=== PATIENT | male | born 1975 | race Caucasian/White ===

== ENCOUNTER 2019-12-11 08:38 | Inpatient (IN) | payer OTHER ==
[~2019-12-11] VITALS: Ht 182.9 cm; Wt 90.5 kg
[2019-12-11] MEDS ORDERED: SACU1TAB PO (08:56)
[2019-12-11 09:11] LABS: BASOPHILS % (AUTO) 0.5 % (0.0-2.0); EOSINOPHILS % (AUTO) 0.7 % (1.0-6.0); HEMOGLOBIN 15.1 g/dL (13.5-17.5); LYMPHOCYTES # (AUTO) 0.8 K/uL (1.0-4.8); LYMPHOCYTES % (AUTO) 11.1 % (22.0-44.0); MEAN CORPUSCULAR HEMOGLOBIN 31.3 pg (26.0-34.0); MEAN CORPUSCULAR HGB CONC 32.9 G/dL (31.0-37.0); MEAN CORPUSCULAR VOLUME 95 fL (80-100); MONOCYTES # (AUTO) 0.5 K/uL (0.1-1.0); MONOCYTES % (AUTO) 7.3 % (2.0-9.0); NEUTROPHILS # (AUTO) 5.7 K/uL (1.8-7.7); NEUTROPHILS % (AUTO) 80.4 % (40.0-70.0); PLATELET COUNT (AUTO) 271 K/uL (150-450); RED BLOOD CELL COUNT(AUTO) 4.83 MIL/uL (4.50-5.90)
[2019-12-11 09:20] LABS: ANION GAP 11 mmol/L (8-16); CALCIUM, TOTAL 9.8 mg/dL (8.8-10.5); CARBON DIOXIDE 25 mmol/L (22-29); CHLORIDE 102 mmol/L (98-107); CREATININE 0.95 mg/dL (0.60-1.30); GLOMERULAR FILTR. RATE CALC > 60 mL/min (>60); GLUCOSE,RANDOM 105 mg/dL (70-110); POTASSIUM 3.8 mmol/L (3.5-5.1); SODIUM SERUM 138 mmol/L (136-145); UREA NITROGEN, BLOOD 9 mg/dL (7-18)
[2019-12-11 09:52] LABS: ALANINE AMINOTRANSFERASE 36 U/L (12-78); ALKALINE PHOSPHATASE 91 U/L (46-116); ASPARTATE AMINOTRANSFERASE 29 U/L (15-37); BILIRUBIN,TOTAL 0.5 mg/dL (0.1-1.0); CREATINE KINASE, TOTAL ONLY 162 U/L (39-308); TOTAL PROTEIN, SERUM 7.9 g/dL (6.4-8.2)
[2019-12-11] MEDS ORDERED: LORazepam 2 MG/ML VIAL IVP ONE (10:15)
[2019-12-11 11:25] LABS: APPEARANCE,URINE CLEAR (CLEAR); BILIRUBIN,URINE NEGATIVE (NEGATIVE); GLUCOSE, URINE (UA) NEGATIVE (NEGATIVE); KETONES,URINE TRACE mg/dL (NEGATIVE); LEUKOCYTE ESTERASE ,URINE NEGATIVE (NEGATIVE); NITRATE,URINE NEGATIVE (NEGATIVE); OCCULT BLOOD,URINE NEGATIVE (NEGATIVE); PH,URINE 7.5 (5.0-8.0); PROTEIN,URINE NEGATIVE (NEGATIVE)
[2019-12-11 11:27] LABS: INFLUENZA TYPE A NEGATIVE FOR TYPE A (NEGATIVE); INFLUENZA TYPE B NEGATIVE FOR TYPE B (NEGATIVE)
[2019-12-11 11:27] LABS: BACTERIA,URINE None Seen /HPF (None Seen); RBC,URINE None Seen /HPF (0-2); WBC,URINE None Seen /HPF (0-5)
[2019-12-11] MEDS ORDERED: ACETAMINOPHEN 325 MG TABLET PO PRN ×2 (11:30→16:30)
[2019-12-11] MEDS ORDERED: ONDANSETRON HCL 4 MG/2 ML VIAL IVP PRN ×2 (11:30→16:30)
[2019-12-11] MEDS ORDERED: 0.9% SODIUM CHLORIDE 10 ML SYRINGE IVP PRN (11:30)
[2019-12-11 11:40] LABS: AMPHET/METH SCREEN,URINE POSITIVE (NEGATIVE); BARBITURATE SCREEN, URINE NEGATIVE (NEGATIVE); BENZODIAZEPINES SCREEN,URINE NEGATIVE (NEGATIVE); CANNABINOID SCREEN,URINE NEGATIVE (NEGATIVE); COCAINE SCREEN,URINE NEGATIVE (NEGATIVE); METHADONE SCREEN, URINE NEGATIVE (NEGATIVE); OPIATE SCREEN,URINE POSITIVE (NEGATIVE); PHENCYCLIDINE SCREEN,URINE NEGATIVE (NEGATIVE)
[2019-12-11] MEDS ORDERED: ASPIRIN 325 MG TABLET PO ONE (11:45)
[2019-12-11 15:16] VITALS: BP 125/76
[2019-12-11] MEDS ORDERED: MAGNESIUM HYDROXIDE SUSPENSION 30 ML UDCUP PO PRN (16:30)
[2019-12-11] MEDS ORDERED: BISACODYL 10 MG RECTAL RECTAL SUPPOSITORY PR PRN (16:30)
[2019-12-11 19:53] VITALS: BP 143/103
[2019-12-11] MEDS: DOCUSATE SODIUM 100 MG CAPSULE PO SCH (20:25)
[2019-12-11] MEDS: SACUBITRIL/VALSARTAN 24-26 MG TABLET PO SCH (20:25)
[2019-12-11] MEDS: HEPARIN SODIUM,PORCINE 5,000 UNITS/ML VIAL SQ SCH (23:27)
[2019-12-12 05:06] VITALS: BP 143/100
[2019-12-12 08:10] VITALS: BP 148/85
[2019-12-12] MEDS: HEPARIN SODIUM,PORCINE 5,000 UNITS/ML VIAL SQ SCH ×3 (08:27→23:33)
[2019-12-12] MEDS: PANTOPRAZOLE SODIUM 40 MG DR TABLET PO SCH (08:28)
[2019-12-12] MEDS: DOCUSATE SODIUM 100 MG CAPSULE PO SCH ×2 (08:28→21:23)
[2019-12-12] MEDS: SACUBITRIL/VALSARTAN 24-26 MG TABLET PO SCH ×2 (08:28→21:23)
[2019-12-12 12:00] VITALS: BP 132/84
[2019-12-12] MEDS: HYDROCODONE/ACETAMINOPHEN 5-325 MG TABLET PO PRN (16:05)
[2019-12-12 16:14] VITALS: BP 142/84
[2019-12-12] MEDS: FUROSEMIDE 40 MG/4 ML VIAL IVP SCH (21:23)
[2019-12-12 21:27] VITALS: BP 122/87
[2019-12-12 21:28] VITALS: BP 122/76
[2019-12-13 00:09] VITALS: BP 114/75
[2019-12-13 04:50] VITALS: BP 120/78
[2019-12-13 07:48] VITALS: BP 116/82
[2019-12-13] MEDS: HEPARIN SODIUM,PORCINE 5,000 UNITS/ML VIAL SQ SCH ×2 (08:12→15:54)
[2019-12-13] MEDS: PANTOPRAZOLE SODIUM 40 MG DR TABLET PO SCH (08:13)
[2019-12-13] MEDS: DOCUSATE SODIUM 100 MG CAPSULE PO SCH ×2 (08:13→20:26)
[2019-12-13] MEDS: SACUBITRIL/VALSARTAN 24-26 MG TABLET PO SCH ×2 (08:13→20:25)
[2019-12-13] MEDS: FUROSEMIDE 40 MG/4 ML VIAL IVP SCH (08:13)
[2019-12-13 11:13] VITALS: BP 119/62
[2019-12-13 15:45] VITALS: BP 119/69
[2019-12-13 20:05] VITALS: BP 126/68
[2019-12-13] MEDS: CARVEDILOL 3.125 MG TABLET PO SCH (20:25)
[2019-12-13] MEDS: ZOLPIDEM TARTRATE 5 MG TABLET PO PRN (20:54)
[2019-12-13] MEDS ORDERED: SACUBITRIL/VALSARTAN 24-26 MG TABLET PO SCH (21:00)
[2019-12-14] VITALS (10 sets, daily range): BP systolic 104–134; BP diastolic 60–78
[2019-12-14] MEDS: DOCUSATE SODIUM 100 MG CAPSULE PO SCH ×2 (09:00→20:18)
[2019-12-14] MEDS: FUROSEMIDE 40 MG TABLET PO SCH (09:00)
[2019-12-14] MEDS: SACUBITRIL/VALSARTAN 24-26 MG TABLET PO SCH ×2 (09:00→21:00)
[2019-12-14] MEDS: CARVEDILOL 3.125 MG TABLET PO SCH ×2 (09:00→20:18)
[2019-12-14] MEDS ORDERED: REGADENOSON 0.4 MG/5 ML PF SYRINGE IVP ONE (10:24)
[2019-12-14] MEDS ORDERED: SESTAMIBI TC99M/UD ISOTOPE 1 EA INJ INJ ONE ×2 (10:25→12:30)
[2019-12-14] MEDS ORDERED: AMINOPHYLLINE 25 MG/ML 10 ML VIAL IVP ONE (10:37)
[2019-12-14] MEDS: HEPARIN SODIUM,PORCINE 5,000 UNITS/ML VIAL SQ SCH ×3 (11:30→16:00)
[2019-12-14] MEDS: PANTOPRAZOLE SODIUM 40 MG DR TABLET PO SCH (11:30)
[2019-12-14] MEDS: ZOLPIDEM TARTRATE 5 MG TABLET PO PRN (20:18)
[2019-12-15] VITALS (7 sets, daily range): BP systolic 107–144; BP diastolic 61–78
[2019-12-15] MEDS: PANTOPRAZOLE SODIUM 40 MG DR TABLET PO SCH (08:24)
[2019-12-15] MEDS: FUROSEMIDE 40 MG TABLET PO SCH (08:24)
[2019-12-15] MEDS: SACUBITRIL/VALSARTAN 24-26 MG TABLET PO SCH ×2 (08:24→20:15)
[2019-12-15] MEDS: HEPARIN SODIUM,PORCINE 5,000 UNITS/ML VIAL SQ SCH ×3 (08:24→16:00)
[2019-12-15] MEDS: DOCUSATE SODIUM 100 MG CAPSULE PO SCH ×2 (08:24→21:00)
[2019-12-15 10:53] LABS: BASOPHILS % (AUTO) 0.7 % (0.0-2.0); EOSINOPHILS % (AUTO) 0.8 % (1.0-6.0); HEMATOCRIT 51.7 % (41-53); HEMOGLOBIN 16.8 g/dL (13.5-17.5); LYMPHOCYTES # (AUTO) 1.1 K/uL (1.0-4.8); LYMPHOCYTES % (AUTO) 15.7 % (22.0-44.0); MEAN CORPUSCULAR HEMOGLOBIN 31.3 pg (26.0-34.0); MEAN CORPUSCULAR HGB CONC 32.5 G/dL (31.0-37.0); MEAN CORPUSCULAR VOLUME 96 fL (80-100); MONOCYTES # (AUTO) 0.5 K/uL (0.1-1.0); MONOCYTES % (AUTO) 6.9 % (2.0-9.0); NEUTROPHILS # (AUTO) 5.5 K/uL (1.8-7.7); NEUTROPHILS % (AUTO) 75.9 % (40.0-70.0); PLATELET COUNT (AUTO) 293 K/uL (150-450); RED BLOOD CELL COUNT(AUTO) 5.38 MIL/uL (4.50-5.90); RED CELL DISTRIBUTION WIDTH 13.7 % (11.5-14.5)
[2019-12-15 11:02] LABS: ANION GAP 10 mmol/L (8-16); CALCIUM, TOTAL 9.1 mg/dL (8.8-10.5); CARBON DIOXIDE 27 mmol/L (22-29); CHLORIDE 101 mmol/L (98-107); CREATININE 1.05 mg/dL (0.60-1.30); GLOMERULAR FILTR. RATE CALC > 60 mL/min (>60); GLUCOSE,RANDOM 123 mg/dL (70-110); POTASSIUM 4.1 mmol/L (3.5-5.1); SODIUM SERUM 138 mmol/L (136-145); UREA NITROGEN, BLOOD 20 mg/dL (7-18)
[2019-12-15] MEDS: HYDROCODONE/ACETAMINOPHEN 5-325 MG TABLET PO PRN (11:58)
[2019-12-15] MEDS ORDERED: REGADENOSON 0.4 MG/5 ML PF SYRINGE IVP ONE (18:27)
[2019-12-15] MEDS ORDERED: AMINOPHYLLINE 25 MG/ML 10 ML VIAL IVP ONE (18:27)
[2019-12-15] MEDS: CARVEDILOL 3.125 MG TABLET PO SCH (20:16)
[2019-12-15] MEDS: ZOLPIDEM TARTRATE 5 MG TABLET PO PRN (20:20)
[2019-12-16 04:31] VITALS: BP 105/62
[2019-12-16 06:40] LABS: BASOPHILS % (AUTO) 0.8 % (0.0-2.0); EOSINOPHILS % (AUTO) 2.1 % (1.0-6.0); HEMATOCRIT 51.3 % (41-53); LYMPHOCYTES # (AUTO) 1.4 K/uL (1.0-4.8); LYMPHOCYTES % (AUTO) 18.1 % (22.0-44.0); MEAN CORPUSCULAR HEMOGLOBIN 31.6 pg (26.0-34.0); MEAN CORPUSCULAR HGB CONC 33.1 G/dL (31.0-37.0); MEAN CORPUSCULAR VOLUME 96 fL (80-100); MONOCYTES # (AUTO) 0.8 K/uL (0.1-1.0); MONOCYTES % (AUTO) 9.9 % (2.0-9.0); NEUTROPHILS # (AUTO) 5.3 K/uL (1.8-7.7); NEUTROPHILS % (AUTO) 69.1 % (40.0-70.0); PLATELET COUNT (AUTO) 259 K/uL (150-450); RED BLOOD CELL COUNT(AUTO) 5.37 MIL/uL (4.50-5.90); RED CELL DISTRIBUTION WIDTH 13.7 % (11.5-14.5)
[2019-12-16 07:00] LABS: ALANINE AMINOTRANSFERASE 52 U/L (12-78); ALBUMIN 3.8 g/dL (3.4-5.0); ALKALINE PHOSPHATASE 75 U/L (46-116); ANION GAP 7 mmol/L (8-16); ASPARTATE AMINOTRANSFERASE 26 U/L (15-37); BILIRUBIN,TOTAL 0.3 mg/dL (0.1-1.0); CALCIUM, TOTAL 9.4 mg/dL (8.8-10.5); CARBON DIOXIDE 28 mmol/L (22-29); CHLORIDE 101 mmol/L (98-107); CREATININE 1.01 mg/dL (0.60-1.30); GLOMERULAR FILTR. RATE CALC > 60 mL/min (>60); GLUCOSE,RANDOM 104 mg/dL (70-110); POTASSIUM 4.1 mmol/L (3.5-5.1); SODIUM SERUM 136 mmol/L (136-145); TOTAL PROTEIN, SERUM 7.8 g/dL (6.4-8.2); UREA NITROGEN, BLOOD 22 mg/dL (7-18)
[2019-12-16 07:50] VITALS: BP 115/63
[2019-12-16] MEDS: HYDROCODONE/ACETAMINOPHEN 5-325 MG TABLET PO PRN ×2 (08:12→12:13)
[2019-12-16] MEDS: PANTOPRAZOLE SODIUM 40 MG DR TABLET PO SCH (08:12)
[2019-12-16] MEDS: SACUBITRIL/VALSARTAN 24-26 MG TABLET PO SCH ×2 (08:12→21:00)
[2019-12-16] MEDS: CARVEDILOL 3.125 MG TABLET PO SCH ×2 (08:12→21:00)
[2019-12-16] MEDS: HEPARIN SODIUM,PORCINE 5,000 UNITS/ML VIAL SQ SCH ×3 (08:13→16:00)
[2019-12-16] MEDS: DOCUSATE SODIUM 100 MG CAPSULE PO SCH ×2 (08:13→21:06)
[2019-12-16 11:40] VITALS: BP 102/65
[2019-12-16] MEDS: FUROSEMIDE 40 MG TABLET PO SCH (12:11)
[2019-12-16 16:02] VITALS: BP 108/58
[2019-12-16 19:30] VITALS: BP 101/59
[2019-12-16] MEDS: ZOLPIDEM TARTRATE 5 MG TABLET PO PRN (21:05)
[2019-12-16 23:18] VITALS: BP 109/62
[2019-12-17] VITALS (15 sets, daily range): BP systolic 103–140; BP diastolic 62–92
[2019-12-17 07:59] LABS: BASOPHILS % (AUTO) 0.7 % (0.0-2.0); EOSINOPHILS % (AUTO) 1.6 % (1.0-6.0); HEMATOCRIT 49.5 % (41-53); HEMOGLOBIN 16.1 g/dL (13.5-17.5); LYMPHOCYTES # (AUTO) 1.2 K/uL (1.0-4.8); MEAN CORPUSCULAR HEMOGLOBIN 31.3 pg (26.0-34.0); MEAN CORPUSCULAR HGB CONC 32.5 G/dL (31.0-37.0); MEAN CORPUSCULAR VOLUME 96 fL (80-100); MONOCYTES # (AUTO) 0.6 K/uL (0.1-1.0); MONOCYTES % (AUTO) 8.7 % (2.0-9.0); NEUTROPHILS # (AUTO) 5.1 K/uL (1.8-7.7); PLATELET COUNT (AUTO) 281 K/uL (150-450); RED BLOOD CELL COUNT(AUTO) 5.15 MIL/uL (4.50-5.90); RED CELL DISTRIBUTION WIDTH 13.5 % (11.5-14.5)
[2019-12-17 08:15] LABS: PROTHROMBIN TIME 10.4 SEC (9.4-11.6)
[2019-12-17 08:23] LABS: ALANINE AMINOTRANSFERASE 49 U/L (12-78); ALBUMIN 3.8 g/dL (3.4-5.0); ALKALINE PHOSPHATASE 76 U/L (46-116); ASPARTATE AMINOTRANSFERASE 21 U/L (15-37); BILIRUBIN,TOTAL 0.4 mg/dL (0.1-1.0); CALCIUM, TOTAL 9.2 mg/dL (8.8-10.5); CARBON DIOXIDE 29 mmol/L (22-29); CHLORIDE 101 mmol/L (98-107); CREATININE 1.04 mg/dL (0.60-1.30); GLOMERULAR FILTR. RATE CALC > 60 mL/min (>60); GLUCOSE,RANDOM 89 mg/dL (70-110); TOTAL PROTEIN, SERUM 7.8 g/dL (6.4-8.2); UREA NITROGEN, BLOOD 22 mg/dL (7-18)
[2019-12-17 08:32] LABS: ANION GAP 5 mmol/L (8-16); POTASSIUM 4.4 mmol/L (3.5-5.1); SODIUM SERUM 135 mmol/L (136-145)
[2019-12-17] MEDS: FUROSEMIDE 40 MG TABLET PO SCH (09:00)
[2019-12-17] MEDS ORDERED: LIDOCAINE/PF 1% 30 ML VIAL ONE ×2 (11:51→12:42)
[2019-12-17] MEDS ORDERED: SODIUM BICARBONATE 50 MEQ/50 ML VIAL ONE (11:51)
[2019-12-17] MEDS ORDERED: MIDAZOLAM HCL 2 MG/2 ML VIAL IVP ONE (12:00)
[2019-12-17] MEDS ORDERED: LIDOCAINE/PF 2% 5 ML VIAL INJ ONE (12:00)
[2019-12-17] MEDS ORDERED: PROPOFOL 1% 20 ML VIAL IVP ONE (12:00)
[2019-12-17] MEDS ORDERED: FentaNYL CITRATE-PF 100 MCG/2 ML VIAL IVP ONE (12:00)
[2019-12-17] MEDS ORDERED: IOHEXOL 300 MG/ML 150 ML VIAL ONE (12:10)
[2019-12-17] MEDS ORDERED: IOHEXOL 300 MG/ML 50 ML VIAL ONE (12:11)
[2019-12-17] MEDS ORDERED: IOHEXOL 300 MG/ML 100 ML VIAL ONE (12:11)
[2019-12-17] MEDS ORDERED: BUPIVACAINE LIPOSOME/PF 1.3%-13.3MG/ML SUSPENSION 10 ML VIAL INJ ONE (12:30)
[2019-12-17] MEDS ORDERED: LIDOCAINE 1% 30 ML/SOD BICARB 8.4% 4 ML SQ ONE ×2 (12:30→13:00)
[2019-12-17] MEDS: DOCUSATE SODIUM 100 MG CAPSULE PO SCH ×2 (16:34→20:48)
[2019-12-17] MEDS: HYDROCODONE/ACETAMINOPHEN 5-325 MG TABLET PO PRN (16:35)
[2019-12-17] MEDS: PANTOPRAZOLE SODIUM 40 MG DR TABLET PO SCH (16:35)
[2019-12-17] MEDS: SACUBITRIL/VALSARTAN 24-26 MG TABLET PO SCH ×2 (16:36→20:48)
[2019-12-17] MEDS: CARVEDILOL 3.125 MG TABLET PO SCH ×2 (16:37→20:48)
[2019-12-17] MEDS ORDERED: SODIUM CHLORIDE 0.9% 250 ML IV ONE (17:55)
[2019-12-17] MEDS: CeFAZolin 1 GM/DEXTROSE 50 ML IV SCH (18:25)
[2019-12-18 00:09] VITALS: BP 97/54
[2019-12-18] MEDS: CeFAZolin 1 GM/DEXTROSE 50 ML IV SCH ×2 (00:12→06:36)
[2019-12-18] MEDS: ZOLPIDEM TARTRATE 5 MG TABLET PO PRN (00:12)
[2019-12-18 03:38] VITALS: BP 94/55
[2019-12-18] MEDS: MORPHINE SULFATE 2 MG/ML SYRINGE IVP PRN ×2 (04:06→11:14)
[2019-12-18 07:48] VITALS: BP 109/71
[2019-12-18] MEDS: FUROSEMIDE 40 MG TABLET PO SCH (07:56)
[2019-12-18] MEDS: PANTOPRAZOLE SODIUM 40 MG DR TABLET PO SCH (07:56)
[2019-12-18 08:01] LABS: BASOPHILS % (AUTO) 0.4 % (0.0-2.0); EOSINOPHILS % (AUTO) 3.3 % (1.0-6.0); HEMATOCRIT 46.5 % (41-53); LYMPHOCYTES % (AUTO) 9.7 % (22.0-44.0); MEAN CORPUSCULAR HEMOGLOBIN 31.1 pg (26.0-34.0); MEAN CORPUSCULAR HGB CONC 32.3 G/dL (31.0-37.0); MEAN CORPUSCULAR VOLUME 96 fL (80-100); MONOCYTES # (AUTO) 0.8 K/uL (0.1-1.0); MONOCYTES % (AUTO) 7.5 % (2.0-9.0); NEUTROPHILS # (AUTO) 8.1 K/uL (1.8-7.7); NEUTROPHILS % (AUTO) 79.1 % (40.0-70.0); PLATELET COUNT (AUTO) 219 K/uL (150-450); RED BLOOD CELL COUNT(AUTO) 4.84 MIL/uL (4.50-5.90); RED CELL DISTRIBUTION WIDTH 13.5 % (11.5-14.5)
[2019-12-18] MEDS: CARVEDILOL 3.125 MG TABLET PO SCH (08:01)
[2019-12-18] MEDS: DOCUSATE SODIUM 100 MG CAPSULE PO SCH (08:02)
[2019-12-18] MEDS: SACUBITRIL/VALSARTAN 24-26 MG TABLET PO SCH (08:03)
[2019-12-18 08:06] LABS: ANION GAP 8 mmol/L (8-16); CALCIUM, TOTAL 8.9 mg/dL (8.8-10.5); CARBON DIOXIDE 24 mmol/L (22-29); CHLORIDE 99 mmol/L (98-107); CREATININE 0.96 mg/dL (0.60-1.30); GLOMERULAR FILTR. RATE CALC > 60 mL/min (>60); GLUCOSE,RANDOM 141 mg/dL (70-110); POTASSIUM 4.1 mmol/L (3.5-5.1); SODIUM SERUM 131 mmol/L (136-145); UREA NITROGEN, BLOOD 18 mg/dL (7-18)
[2019-12-18 11:31] VITALS: BP 93/59
[2019-12-18] MEDS ORDERED: FURO40 PO ×2 (12:53→12:55)
[2019-12-18] MEDS ORDERED: CARV3 PO (12:54)
[2019-12-18] MEDS ORDERED: CARVEDILOL 3.125 MG TABLET PO SCH (21:00)
== END 2019-12-18 13:15 | disposition home or self-care (01) | DRG 227 ==
LOC: EMS 08:39 → 5N 13:31 → 5S 12-12 21:11
PROVIDERS: ADMIT Hospitalist; ATTEND Hospitalist
PROC: 0JH608Z Insertion of Defibrillator Generator into Chest Subcutaneous Tissue and Fascia, Open Approach (ICD-10-PCS; principal; 2019-12-17)
PROC: 02HK3KZ Insertion of Defibrillator Lead into Right Ventricle, Percutaneous Approach (ICD-10-PCS; 2019-12-17)
PROC: 0JH604Z Insertion of Pacemaker, Single Chamber into Chest Subcutaneous Tissue and Fascia, Open Approach (ICD-10-PCS; 2019-12-17)
DX: I11.0 Hypertensive heart disease with heart failure (principal); F11.23 Opioid dependence with withdrawal; I47.2 Ventricular tachycardia; I42.8 Other cardiomyopathies; E78.5 Hyperlipidemia, unspecified; Y90.9 Presence of alcohol in blood, level not specified; F14.10 Cocaine abuse, uncomplicated; F10.129 Alcohol abuse with intoxication, unspecified; J10.1 Influenza due to other identified influenza virus with other respiratory manifestations; J44.9 Chronic obstructive pulmonary disease, unspecified; F19.10 Other psychoactive substance abuse, uncomplicated; F15.90 Other stimulant use, unspecified, uncomplicated; R55 Syncope and collapse; F17.210 Nicotine dependence, cigarettes, uncomplicated; I50.23 Acute on chronic systolic (congestive) heart failure; Z03.818 Encounter for observation for suspected exposure to other biological agents ruled out
CPT/HCPCS: 33241; 33249; 76000; 78452; 83735; 87635; 87804; 93005; 93017; 93306; A9500; J0280; J0690; J1644; J1940; J2060; J2250; J2270; J2405; J2704; J2785; J3010; J3490; J7050; Q9967

== ENCOUNTER 2020-01-04 12:23 | Inpatient (IN) | payer MEDICAID, OTHER ==
[~2020-01-04] VITALS: Ht 182.9 cm; Wt 92.0 kg
[~2020-01-04 12:23] MED LIST changes: -CEPH-581 PO
[2020-01-04] MEDS ORDERED: 0.9% SODIUM CHLORIDE 10 ML SYRINGE IVP PRN (14:15)
[2020-01-04] MEDS ORDERED: ACETAMINOPHEN 325 MG TABLET PO PRN ×2 (14:15→17:30)
[2020-01-04] MEDS ORDERED: ONDANSETRON HCL 4 MG/2 ML VIAL IVP PRN ×2 (14:15→17:30)
[2020-01-04] MEDS ORDERED: HYDROGEN PEROXIDE 118 ML SOLUTION TP ONE (14:15)
[2020-01-04 16:42] LABS: BASOPHILS % (AUTO) 0.9 % (0.0-2.0); EOSINOPHILS % (AUTO) 2.7 % (1.0-6.0); HEMATOCRIT 44.1 % (41-53); HEMOGLOBIN 14.2 g/dL (13.5-17.5); LYMPHOCYTES # (AUTO) 1.5 K/uL (1.0-4.8); LYMPHOCYTES % (AUTO) 20.3 % (22.0-44.0); MEAN CORPUSCULAR HGB CONC 32.2 G/dL (31.0-37.0); MEAN CORPUSCULAR VOLUME 96 fL (80-100); MONOCYTES # (AUTO) 0.7 K/uL (0.1-1.0); MONOCYTES % (AUTO) 9.2 % (2.0-9.0); NEUTROPHILS # (AUTO) 4.9 K/uL (1.8-7.7); NEUTROPHILS % (AUTO) 66.9 % (40.0-70.0); PLATELET COUNT (AUTO) 205 K/uL (150-450); RED BLOOD CELL COUNT(AUTO) 4.58 MIL/uL (4.50-5.90); RED CELL DISTRIBUTION WIDTH 13.8 % (11.5-14.5)
[2020-01-04 17:03] LABS: INR 1.2 (0.9-1.1); PROTHROMBIN TIME 12.1 SEC (9.4-11.6)
[2020-01-04 17:09] LABS: ANION GAP 11 mmol/L (8-16); CALCIUM, TOTAL 8.9 mg/dL (8.8-10.5); CARBON DIOXIDE 23 mmol/L (22-29); CHLORIDE 105 mmol/L (98-107); CREATININE 0.86 mg/dL (0.60-1.30); GLOMERULAR FILTR. RATE CALC > 60 mL/min (>60); GLUCOSE,RANDOM 61 mg/dL (70-110); POTASSIUM 4.3 mmol/L (3.5-5.1); SODIUM SERUM 139 mmol/L (136-145); UREA NITROGEN, BLOOD 30 mg/dL (7-18)
[2020-01-04 17:16] LABS: ALANINE AMINOTRANSFERASE 21 U/L (12-78); ALBUMIN 3.9 g/dL (3.4-5.0); ALKALINE PHOSPHATASE 65 U/L (46-116); ASPARTATE AMINOTRANSFERASE 21 U/L (15-37); TOTAL PROTEIN, SERUM 7.8 g/dL (6.4-8.2)
[2020-01-04 17:17] LABS: BILIRUBIN,TOTAL < 0.1 mg/dL (0.1-1.0)
[2020-01-04] MEDS ORDERED: BISACODYL 10 MG RECTAL RECTAL SUPPOSITORY PR PRN (17:30)
[2020-01-04] MEDS ORDERED: HYDROCODONE/ACETAMINOPHEN 5-325 MG TABLET PO PRN (17:30)
[2020-01-04] MEDS ORDERED: ZOLPIDEM TARTRATE 5 MG TABLET PO PRN (17:30)
[2020-01-04] MEDS ORDERED: MAGNESIUM HYDROXIDE SUSPENSION 30 ML UDCUP PO PRN (17:30)
[2020-01-04 17:42] VITALS: BP 128/69
[2020-01-04 20:22] VITALS: BP 108/61
[2020-01-04] MEDS: DOCUSATE SODIUM 100 MG CAPSULE PO SCH (20:24)
[2020-01-04] MEDS: SACUBITRIL/VALSARTAN 24-26 MG TABLET PO SCH (20:24)
[2020-01-04] MEDS: CARVEDILOL 3.125 MG TABLET PO SCH (20:24)
[2020-01-05] VITALS (7 sets, daily range): BP systolic 96–120; BP diastolic 52–67
[2020-01-05] MEDS: HEPARIN SODIUM,PORCINE 5,000 UNITS/ML VIAL SQ SCH ×4 (00:36→23:28)
[2020-01-05] MEDS: CARVEDILOL 3.125 MG TABLET PO SCH ×2 (08:08→20:57)
[2020-01-05] MEDS: DOCUSATE SODIUM 100 MG CAPSULE PO SCH ×2 (08:08→20:58)
[2020-01-05] MEDS: FUROSEMIDE 40 MG TABLET PO SCH (08:09)
[2020-01-05] MEDS: PANTOPRAZOLE SODIUM 40 MG DR TABLET PO SCH (08:09)
[2020-01-05] MEDS: SACUBITRIL/VALSARTAN 24-26 MG TABLET PO SCH ×2 (08:09→20:57)
[2020-01-05 15:02] LABS: AMPHET/METH SCREEN,URINE NEGATIVE (NEGATIVE); BARBITURATE SCREEN, URINE NEGATIVE (NEGATIVE); BENZODIAZEPINES SCREEN,URINE NEGATIVE (NEGATIVE); CANNABINOID SCREEN,URINE NEGATIVE (NEGATIVE); COCAINE SCREEN,URINE NEGATIVE (NEGATIVE); METHADONE SCREEN, URINE NEGATIVE (NEGATIVE)
[2020-01-05 15:14] LABS: OPIATE SCREEN,URINE POSITIVE (NEGATIVE)
[2020-01-05 15:20] LABS: PHENCYCLIDINE SCREEN,URINE NEGATIVE (NEGATIVE)
[2020-01-06 04:34] VITALS: BP 113/68
[2020-01-06 07:35] VITALS: BP 141/68
[2020-01-06] MEDS: HEPARIN SODIUM,PORCINE 5,000 UNITS/ML VIAL SQ SCH ×2 (08:11→15:57)
[2020-01-06] MEDS: DOCUSATE SODIUM 100 MG CAPSULE PO SCH ×2 (08:12→21:28)
[2020-01-06] MEDS: FUROSEMIDE 40 MG TABLET PO SCH (08:16)
[2020-01-06] MEDS: CARVEDILOL 3.125 MG TABLET PO SCH ×2 (08:16→21:28)
[2020-01-06] MEDS: PANTOPRAZOLE SODIUM 40 MG DR TABLET PO SCH (08:16)
[2020-01-06] MEDS: SACUBITRIL/VALSARTAN 24-26 MG TABLET PO SCH ×2 (08:16→21:28)
[2020-01-06 11:25] VITALS: BP 130/76
[2020-01-06 15:55] VITALS: BP 118/77
[2020-01-06 19:40] VITALS: BP 111/60
[2020-01-07 05:27] VITALS: BP 110/66
[2020-01-07 07:30] LABS: BASOPHILS % (AUTO) 1.1 % (0.0-2.0); HEMATOCRIT 45.4 % (41-53); HEMOGLOBIN 15.3 g/dL (13.5-17.5); LYMPHOCYTES # (AUTO) 1.2 K/uL (1.0-4.8); LYMPHOCYTES % (AUTO) 24.8 % (22.0-44.0); MEAN CORPUSCULAR HEMOGLOBIN 32.4 pg (26.0-34.0); MEAN CORPUSCULAR HGB CONC 33.7 G/dL (31.0-37.0); MEAN CORPUSCULAR VOLUME 96 fL (80-100); MONOCYTES # (AUTO) 0.5 K/uL (0.1-1.0); NEUTROPHILS # (AUTO) 2.8 K/uL (1.8-7.7); NEUTROPHILS % (AUTO) 58.1 % (40.0-70.0); PLATELET COUNT (AUTO) 216 K/uL (150-450); RED BLOOD CELL COUNT(AUTO) 4.72 MIL/uL (4.50-5.90); RED CELL DISTRIBUTION WIDTH 13.9 % (11.5-14.5)
[2020-01-07 07:34] VITALS: BP 125/79
[2020-01-07 07:52] LABS: ANION GAP 7 mmol/L (8-16); CALCIUM, TOTAL 9.2 mg/dL (8.8-10.5); CARBON DIOXIDE 29 mmol/L (22-29); CHLORIDE 103 mmol/L (98-107); GLOMERULAR FILTR. RATE CALC > 60 mL/min (>60); GLUCOSE,RANDOM 83 mg/dL (70-110); SODIUM SERUM 139 mmol/L (136-145); UREA NITROGEN, BLOOD 19 mg/dL (7-18)
[2020-01-07] MEDS: PANTOPRAZOLE SODIUM 40 MG DR TABLET PO SCH (09:00)
[2020-01-07] MEDS: SACUBITRIL/VALSARTAN 24-26 MG TABLET PO SCH ×2 (09:00→20:19)
[2020-01-07] MEDS: CARVEDILOL 3.125 MG TABLET PO SCH ×2 (09:00→20:19)
[2020-01-07] MEDS: DOCUSATE SODIUM 100 MG CAPSULE PO SCH ×2 (09:00→20:19)
[2020-01-07] MEDS ORDERED: LIDOCAINE/PF 1% 30 ML VIAL ONE (10:37)
[2020-01-07] MEDS ORDERED: SODIUM BICARBONATE 50 MEQ/50 ML VIAL ONE (10:37)
[2020-01-07] MEDS ORDERED: BUPIVACAINE LIPOSOME/PF 1.3%-13.3MG/ML SUSPENSION 10 ML VIAL INJ ONE ×2 (11:45)
[2020-01-07] MEDS ORDERED: LIDOCAINE 1% 30 ML/SOD BICARB 8.4% 4 ML SQ ONE ×2 (11:45)
[2020-01-07 11:56] VITALS: BP 107/67
[2020-01-07] MEDS: FUROSEMIDE 40 MG TABLET PO SCH (13:58)
[2020-01-07 15:04] VITALS: BP 108/66
[2020-01-07] MEDS ORDERED: SODIUM CHLORIDE 0.9% 250 ML IV ONE (16:40)
[2020-01-07] MEDS: CeFAZolin 1 GM/DEXTROSE 50 ML IV SCH ×2 (17:13→23:59)
[2020-01-07 20:15] VITALS: BP 105/68
[2020-01-07] MEDS: MORPHINE SULFATE 2 MG/ML SYRINGE IVP PRN (20:20)
[2020-01-07 23:47] VITALS: BP 112/67
[2020-01-08] MEDS: MORPHINE SULFATE 2 MG/ML SYRINGE IVP PRN ×2 (02:04→08:00)
[2020-01-08 04:13] VITALS: BP 118/77
[2020-01-08] MEDS: CeFAZolin 1 GM/DEXTROSE 50 ML IV SCH (05:49)
[2020-01-08] MEDS ORDERED: FentaNYL CITRATE-PF 100 MCG/2 ML VIAL IVP ONE (06:33)
[2020-01-08] MEDS ORDERED: MIDAZOLAM HCL 2 MG/2 ML VIAL IVP ONE (06:33)
[2020-01-08 07:45] VITALS: BP 128/63
[2020-01-08] MEDS: SACUBITRIL/VALSARTAN 24-26 MG TABLET PO SCH (07:54)
[2020-01-08] MEDS: DOCUSATE SODIUM 100 MG CAPSULE PO SCH (07:55)
[2020-01-08] MEDS: CARVEDILOL 3.125 MG TABLET PO SCH (07:55)
[2020-01-08] MEDS: PANTOPRAZOLE SODIUM 40 MG DR TABLET PO SCH (07:55)
[2020-01-08] MEDS: FUROSEMIDE 40 MG TABLET PO SCH (07:55)
[2020-01-08 12:35] VITALS: BP 112/75
[2020-01-08] MEDS ORDERED: CEPHALEXIN MONOHYDRATE 250 MG CAPSULE PO SCH ×2 (13:00→14:00)
[2020-01-08] MEDS ORDERED: CEPH-581 PO (14:39)
== END 2020-01-08 14:00 | disposition home or self-care (01) | DRG 177 ==
LOC: EMS 12:24 → 5S 15:36
PROVIDERS: ADMIT Internal Medicine; ATTEND Internal Medicine
PROC: 02WA3MZ Revision of Cardiac Lead in Heart, Percutaneous Approach (ICD-10-PCS; principal; 2020-01-07)
PROC: B2141ZZ Fluoroscopy of Right Heart using Low Osmolar Contrast (ICD-10-PCS; 2020-01-07)
DX: T82.198A Other mechanical complication of other cardiac electronic device, initial encounter (principal); I11.0 Hypertensive heart disease with heart failure; I42.8 Other cardiomyopathies; I50.22 Chronic systolic (congestive) heart failure; Z95.810 Presence of automatic (implantable) cardiac defibrillator; F10.20 Alcohol dependence, uncomplicated; F19.10 Other psychoactive substance abuse, uncomplicated; F15.90 Other stimulant use, unspecified, uncomplicated; F17.210 Nicotine dependence, cigarettes, uncomplicated; K04.7 Periapical abscess without sinus; Y83.8 Other surgical procedures as the cause of abnormal reaction of the patient, or of later complication, without mention of misadventure at the time of the procedure; Y92.89 Other specified places as the place of occurrence of the external cause; Z20.828 Contact with and (suspected) exposure to other viral communicable diseases
CPT/HCPCS: 33215; 76000; 83735; 93005; J0690; J1644; J2250; J2270; J3010; J3490; J7050

== ENCOUNTER → 2020-01-04 | Outpatient (CLI) | payer OTHER ==
[~2020-01-04] VITALS: Ht 182.9 cm; Wt 89.0 kg
[~2020-01-04] MED LIST: CARV3 PO; CEPH-581 PO; FURO40 PO; SACU1TAB PO
[2020-01-04 11:26] VITALS: BP 103/51
== END | disposition home or self-care (01) ==
LOC: SRCNTR 11:25
PROVIDERS: ATTEND Internal Medicine Clinical Cardiac Electrophysiology
DX: Z45.09 Encounter for adjustment and management of other cardiac device (principal); I50.9 Heart failure, unspecified; Z95.810 Presence of automatic (implantable) cardiac defibrillator
CPT/HCPCS: G0463